=== PATIENT | male | born 1990 | race Two or more races ===

== ENCOUNTER 2025-05-29 18:44 | Emergency (ER) | payer OTHER, SELFPAY ==
[2025-05-29 19:14] VITALS: BP 128/89; PULSE 84; RESP 16; TEMP 36.9; O2SAT 98
--- NOTE | 2025-05-29 19:42 | PD.EDMALE ---
ED Male Genitalurinary RME/HPI General Chief complaint: Urogenital-Male Stated complaint: DYSURIA, HEMATURIA Time Seen by Provider: 05/29/25 19:21 Arrival date/time: 05/29/25 18:44 35M with no significant PMH presents to ED 2 days of dysuria and hematuria. Patient denies flank pain, N/V, discharge, and concern for STD. Limitations: no limitations Related Data Previous Rx's ?Medication ?Instructions ?Recorded cephalexin 750 mg capsule 750 mg PO TID 7 days #21 caps 05/29/25 Allergies Allergy/AdvReac Type Severity Reaction Status Date / Time No Known Allergies Allergy Verified 05/29/25 18:47 Review of Systems Review of Systems Systems Reviewed: All systems reviewed, normal except as documented Genitourinary Genitourinary: Reports as per HPI, Reports dysuria and Reports hematuria Past Medical History Social History SMOKING STATUS: Never smoker ED Exam General Limitations: Present no limitations General appearance: Present alert and in no apparent distress Head Head exam: Present atraumatic Neck Neck exam: Present normal inspection, full ROM and trachea midline Chest Chest inspection: Present normal inspection and symmetric chest wall rise Extremities Exam Extremities exam: Present normal inspection and full ROM Neurological Exam Neurological exam: Present alert and oriented X3 Psychiatric Psychiatric exam: Present normal affect and normal mood Skin Skin exam: Present warm, dry, intact and normal color Course Quality Measures none Orders Category Date Time Status Drug Screen,Urine Stat Lab 05/29/25 20:04 Completed Urinalysis, C/S if Indicated Stat Lab 05/29/25 20:04 Completed Urine Culture Stat Lab 05/29/25 20:04 Received Vital Signs Vital signs: Vital Signs Temperature 98.5 F 05/29/25 19:14 Pulse Rate 84 05/29/25 19:14 Respiratory Rate 16 05/29/25 19:14 Blood Pressure 128/89 H 05/29/25 19:14 Pulse Oximetry (%) 98 05/29/25 19:14 Oxygen Delivery Method Room Air 05/29/25 19:14 O2 at 98% on RA and WNLs Urogenital - Male MDM Narrative MDM Narrative:: 35M with no significant PMH presents to ED 2 days of dysuria and hematuria. Patient denies flank pain, N/V, discharge, and concern for STD. Physical exam reveals well-appearing male. Patient is afebrile, calm, and alert. UA mild UTI. Tox screen neg. Patient data External records reviewed:: None Clinical information provided by:: patient Social determinants that could affect healthcare access:: none Patient has the following chronic illnesses:: none How is presenting disease/condition affected by chronic disease/condition?: no chronic disease Evaluation data The following diagnostics were reviewed and interpreted by me:: lab results Lab and/or radiology exams considered but not ordered:: ordered Interpretation Summary: above Medications / Prescriptions Medications or Prescriptions considered but not ordered:: not ordered Medication administrations:: n/a Consultations Consultation(s) initiated? (list below): No Diagnosis Urogenital Male Differential Diagnosis: urinary tract infection, priapism, urethritis, epididymitis, genital herpes simplex, prostatitis, acute retention of urine and inguinal hernia Most likely diagnosis given after review of the tests above:: UTI Admission Indicated Admission indicated?: not indicated Admission Request Was there a request for admission?: No Disposition Plan Disposition Plan: Discharge Discharge Attestation Discharge Attestation: The patient and all family members were given an opportunity to ask questions and understood the discharge instructions. Discharge instructions specifically effects, indications for sooner follow up or return to the emergency department, and the expected course of current diagnosis. Patient condition: Stable Discharge Plan Plan Patient Disposition: HOME (Self Care) Discharge Disposition comment: Stable Prescriptions/Referrals Prescriptions/Med Rec: New cephalexin 750 mg capsule 750 mg PO TID 7 Days Qty: 21 0RF Referrals: No Primary/Family,Physician [Primary Care Provider] - In 1 week Problem List Clinical Impression: Urinary tract infection Patient/Caregiver Discharge Instructions Education Materials: ED Bladder Infection, Male (Adult) Additional Instructions: Please follow-up with PCP within 24-48 hours and return immediately if symptoms worsen. NSAIDs like ibuprofen tend to work better for this type of pain. Print Language: [place] Citizen Stand Alone Forms: Patient Portal Info Letter CORDELIA/BRENDAN Supervising Physician CORDELAI/BRENDAN Supervising Physician: Dr. Mirza
[2025-05-29 20:11] LABS: Collection Type, Urine Clean Catch
[2025-05-29 20:24] LABS: Bacteria,Urine Rare; Bilirubin,Urine Negative (Negative); Blood,Urine 2+ (Negative); Clarity,Urine Clear (Clear/Hazy); Color,Urine Lt-Yellow (Lt Yel-Yel); Culture Indicated,Urine Yes; Glucose, Urine Negative (Negative); Ketones,Urine Negative (Negative); Leukocyte Esterase,Urine Positive (Negative); Nitrite,Urine Negative (Negative); PH,Urine 6.0 (5.0-7.0); Protein,Urine Negative (Neg - Trace); RBC,Urine 5 /hpf (0-3); Specific Gravity,Urine 1.009 (1.001-1.035); Squamous Epithelial Cell,Urine 1 /hpf (0-5); Urobilinogen,Urine Negative mg/dL (0.0-1.0); WBC,Urine 12 /hpf (0-5)
[2025-05-29 21:36] LABS: Amphetamine/Methamp Scrn,U Negative (Negative); Barbiturate Screen,Urine Negative (Negative); Benzodiazepines Screen,Urine Negative (Negative); Benzoylecgonine Screen, Ur Negative (Negative); Fentanyl Screen,Urine Negative (Negative); Opiate Screen,Urine Negative (Negative); THC Screen,Urine Negative (Negative)
== END 2025-05-29 21:00 | disposition home or self-care (01) ==
PROVIDERS: Physician Assistant; Emergency Provider Emergency Medicine
DX: N39.0 Urinary tract infection, site not specified (principal); R31.9 Hematuria, unspecified
CPT/HCPCS: 80307; 81001; 87086; 99283